=== PATIENT | male | born 1955 | race African-American/Black ===

== ENCOUNTER 2018-09-20 17:39 | Emergency (ER) | payer MEDICAID ==
[~2018-09-20] VITALS: Ht 172.7 cm; Wt 68.0 kg
[2018-09-20] MEDS ORDERED: SODIUM CHLORIDE 0.9% 1,000 ML IV ONE (18:47)
[2018-09-20 20:02] LABS: BASOPHILS % 0.3 % (0.0-2.0); EOSINOPHILS % 0.5 % (0.0-5.0); HEMATOCRIT. 40.4 % (42.0-52.0); HEMOGLOBIN. 13.5 g/dL (14.0-18.0); LYMPHOCYTES % 16.9 % (20.0-50.0); MEAN CORPUSCULAR HEMOGLOBIN 31.6 pg (28.0-32.0); MEAN CORPUSCULAR VOLUME 94.5 fL (80.0-94.0); MEAN PLATELET VOLUME 7.5 fl (7.4-10.4); MONOCYTES % 9.9 % (2.0-8.0); NEUTROPHILS % 72.4 % (40.0-76.0); PLATELET 252 x1000/uL (130-400); RED BLOOD CELL COUNT 4.27 mill/uL (4.7-6.1); RED CELL DISTRIBUTION WIDTH 12.5 % (11.6-14.6)
[2018-09-20 20:04] LABS: CHLORIDE 98 mEq/L (98-107)
[2018-09-20 20:09] LABS: ETHANOL BLOOD 137 mg/dL
[2018-09-20 21:11] LABS: CLARITY URINE CLOUDY (CLEAR); COLOR URINE YELLOW (YELLOW); KETONES URINE NEGATIVE (NEGATIVE); LEUKOCYTE ESTERASE URINE 2+ (NEGATIVE); NITRITE URINE NEGATIVE (NEGATIVE); OCCULT BLOOD URINE 1+ (NEGATIVE); PROTEIN URINE NEGATIVE (NEGATIVE); SPECIFIC GRAVITY URINE 1.006 (1.005-1.030)
[2018-09-20 21:31] LABS: METHADONE URINE SCREEN NEGATIVE (NEGATIVE); OPIATES URINE SCREEN PRESUMTIVE POSITIVE (NEGATIVE)
[2018-09-20 21:32] LABS: *AMPHETAMINES SCREEN URINE PRESUMTIVE POSITIVE (NEGATIVE); *BARBITURATES SCREEN URINE NEGATIVE (NEGATIVE); *BENZODIAZEPINES SCREEN URINE NEGATIVE (NEGATIVE); *COCAINE SCREEN URINE PRESUMTIVE POSITIVE (NEGATIVE); CANNABINOID URINE SCREEN PRESUMTIVE POSITIVE (NEGATIVE); PHENCYCLIDINE URINE SCREEN NEGATIVE (NEGATIVE)
[2018-09-20] MEDS ORDERED: CEFTRIAXONE 1 G PREMIX 50 ML IV ONE (22:45)
[2018-09-21 01:30] VITALS: BP 131/87
== END 2018-09-21 03:27 | disposition home or self-care (01) ==
LOC: ER 17:39
DX: T40.1X1A Poisoning by heroin, accidental (unintentional), initial encounter (principal); Y92.89 Other specified places as the place of occurrence of the external cause; F10.129 Alcohol abuse with intoxication, unspecified; Y90.6 Blood alcohol level of 120-199 mg/100 ml; F15.10 Other stimulant abuse, uncomplicated; F14.10 Cocaine abuse, uncomplicated; F12.10 Cannabis abuse, uncomplicated; N39.0 Urinary tract infection, site not specified
CPT/HCPCS: 36415; 70450; 80053; 80305; 80320; 81003; 82962; 85025; 87077; 87086; 87186; 96361; 96365; 99284; J0696; J7030; G0480

== ENCOUNTER 2019-10-21 11:26 | Emergency (ER) | payer MEDICAID ==
[~2019-10-21] VITALS: Ht 170.2 cm; Wt 64.0 kg
[~2019-10-21 11:26] MED LIST: FOLI-43 MT; MULT-1146 MT; THIA100T88 MT
[2019-10-21 13:09] LABS: BASOPHILS % 0.5 % (0.0-2.0); EOSINOPHILS % 0.3 % (0.0-5.0); HEMATOCRIT. 38.4 % (42.0-52.0); HEMOGLOBIN. 12.8 g/dL (14.0-18.0); LYMPHOCYTES % 33.4 % (20.0-50.0); MEAN CORPUSCULAR VOLUME 90.2 fL (80.0-94.0); MEAN PLATELET VOLUME 7.3 fl (7.4-10.4); MONOCYTES % 11.3 % (2.0-8.0); NEUTROPHILS % 54.5 % (40.0-76.0); PLATELET 234 x1000/uL (130-400); RED BLOOD CELL COUNT 4.25 mill/uL (4.7-6.1); RED CELL DISTRIBUTION WIDTH 14.3 % (11.6-14.6)
[2019-10-21 13:11] LABS: CHLORIDE 109 mEq/L (98-107)
[2019-10-21 13:16] LABS: ETHANOL BLOOD 188 mg/dL
[2019-10-22 02:00] VITALS: BP 118/60
== END 2019-10-22 10:07 | disposition home or self-care (01) ==
LOC: ER 11:26
DX: F10.229 Alcohol dependence with intoxication, unspecified (principal); Y90.6 Blood alcohol level of 120-199 mg/100 ml; F11.10 Opioid abuse, uncomplicated; Z59.0 Homelessness; Z75.1 Person awaiting admission to adequate facility elsewhere; Z87.828 Personal history of other (healed) physical injury and trauma
CPT/HCPCS: 36415; 80053; 80320; 85025; 99285; G0480

== ENCOUNTER 2019-10-22 13:26 | Emergency (ER) | payer MEDICAID ==
[~2019-10-22] VITALS: Ht 175.3 cm; Wt 75.0 kg
[2019-10-22] MEDS ORDERED: FOLIC ACID 1 MG, THIAMINE HCL 100 MG, MVI, ADULT NO.1 10 ML in DEXTROSE 5% WATER 1,000 ML IV ONE ×4 (14:00)
[2019-10-22] MEDS ORDERED: ONDANSETRON HCL 4MG/2ML INJ IV ONE (14:30)
[2019-10-23 10:23] VITALS: BP 135/70
== END 2019-10-23 10:24 | disposition home or self-care (01) ==
LOC: ER 13:26
DX: M79.18 Myalgia, other site (principal); F10.229 Alcohol dependence with intoxication, unspecified; Y90.0 Blood alcohol level of less than 20 mg/100 ml; I10 Essential (primary) hypertension; Z79.899 Other long term (current) drug therapy; F11.10 Opioid abuse, uncomplicated; G92 Toxic encephalopathy
CPT/HCPCS: 96365; 99285; J3411; J3490; J7070